=== PATIENT | male | born 1975 | race Caucasian/White ===

== ENCOUNTER 2024-08-24 11:02 | Outpatient (CLI) | payer MEDICARE, SELFPAY ==
--- NOTE | 2024-08-24 11:04 | US_ITS ---
FINAL REPORT CLINICAL HISTORY: umbilical hernia COMPARISON: None FINDINGS: A limited ultrasound of the upper abdomen was performed to evaluate for an umbilical hernia. An umbilical hernia is seen, however there does not appear to be any bowel contained within the hernia. The overall appearance is most consistent with a fat-containing hernia. However, CT evaluation would be more accurate for evaluation of this area. IMPRESSION: There appears to be an umbilical hernia containing fat present. No bowel is seen within the hernia. CT evaluation is more accurate for evaluation of this area. Reviewed, Interpreted and Dictated by Zay Heredia III, MD Transcribed by Minoo Wade Authenticated and [facility]
== END 2024-08-24 23:59 | disposition home or self-care (01) ==
PROVIDERS: Visit Provider Nurse Practitioner Family
DX: K42.9 Umbilical hernia without obstruction or gangrene (principal)
CPT/HCPCS: 76705

== ENCOUNTER 2025-01-14 10:26 | Emergency (ER) | payer MEDICARE, SELFPAY ==
[2025-01-14 10:34] VITALS: PULSE 80; O2SAT 92
[2025-01-14 10:35] VITALS: BP 151/94; PULSE 68; O2SAT 95
[2025-01-14 10:39] LABS: Microscopic, Urine URINE MICROSCOPIC (MICROSCOPIC)
[2025-01-14 10:42] VITALS: BP 151/94; PULSE 73; RESP 16; TEMP 36.6; O2SAT 96; BMI 33.3
[2025-01-14 10:42] LABS: Appearance,Urine CLEAR (Clear); Bilirubin,Urine Negative (Negative); Blood, Urine TRACE-I (Negative); Color,Urine YELLOW (Yellow); Glucose,Urine (UA) Negative (Negative); Ketones,Urine Negative (Negative); Leukocyte Esterase,Urine Negative (Negative); Nitrate,Urine Negative (Negative); Protein,Urine Negative (Negative); Specific Gravity, Urine 1.025 (1.005-1.030); Urobilinogen,Urine 0.2 EU/dl (0.2)
--- NOTE | 2025-01-14 10:53 | CT_ITS ---
FINAL REPORT TECHNIQUE: Axial images through the abdomen and pelvis were performed without contrast. This study was performed with techniques to keep radiation doses as low as reasonably achievable, (ALARA). Individualized dose reduction techniques using automated exposure control or adjustment of mA and/or kV according to the patient's size were employed. CLINICAL HISTORY: R flank pain. hx kidney stones COMPARISON: None FINDINGS: Abdomen: The lung bases are clear. Moderate fatty infiltration of the liver is present. The gallbladder is absent. Splenomegaly is present, the spleen measuring 14 cm in the craniocaudal dimension. The pancreas and adrenals are unremarkable. There is marked right hydronephrosis and hydroureter, with a 7 mm stone present in the distal right ureter. The left kidney is unremarkable in appearance. Pelvis: The urinary bladder is decompressed. The appendix is normal in appearance. There is no pelvic mass or inflammation. Note is made of a fat-containing umbilical hernia. IMPRESSION: Marked right hydronephrosis and hydroureter, with a 7 mm calcified stone present in the distal right ureter. Moderate fatty filtration of the liver, and mild splenomegaly. Reviewed, Interpreted and Dictated by Rudy Beck MD Transcribed by Minoo Wade Authenticated and [facility]
[2025-01-14 10:56] LABS: Basophils % 0.2 % (0.1-2.0); Eosinophils # 0.1 Kmm3 (0.0-0.4); Eosinophils % 0.6 % (0.1-12.0); Hematocrit 43.7 % (42.0-52.0); Hemoglobin 14.4 g/dL (14.1-18.0); Lymphocytes # 1.6 K/mm3 (0.7-4.5); Lymphocytes % 11.8 % (10-50); Mean Corpuscular Hemoglobin 27.7 pg (27.0-31.2); Mean Corpuscular Volume 84.2 fl (80-94); Mean Platelet Volume 9.5 fl (7.4-10.4); Monocytes # 0.8 K/mm3 (0.1-1.0); Neutrophils # 10.7 K/mm3 (1.8-7.8); Neutrophils % 80.9 % (37.0-80.0); Nucleated Red Blood Cells # 0 10^3/uL; Nucleated Red Blood Cells % 0 %; Platelet Count 188 K/mm3 (142-424); Red Blood Count 5.19 M/mm3 (4.60-6.20); Red Cell Distribution Width 13.4 % (11.5-17.5); Red Cell Distribution Width-SD 41.5 fL; White Blood Count 13.2 K/mm3 (4.8-10.8)
--- NOTE | 2025-01-14 11:00 | PC.NURSE ---
pt is going to CT at this time
[2025-01-14 11:03] LABS: Alanine Aminotransferase 23 U/L (12-78); Albumin Level 4.2 g/dl (3.5-5.0); Albumin/Globulin Ratio 1.4 (1.1-1.8); Alkaline Phosphatase 61 U/L (38-126); Anion Gap 9.9 mEq/L (5-15); Aspartate Amino Transferase 30 U/L (17-59); Bilirubin,Total 0.5 mg/dl (0.2-1.3); Blood Urea Nitrogen 14 mg/dl (9-20); Calcium 9.1 mg/dl (8.4-10.2); Carbon Dioxide 27 mmol/L (22.0-30.0); Chloride 105 mmol/L (98-107); Creatinine Clearance Estimated 127 mL/min (50-200); Estimated Glomerular Filt Rate 65 ml/min (>60); GFR (African American) 79 ML/MIN (>60); Globulin 2.9 g/dL (1.3-3.2); Glucose 116 mg/dl (74-100); Lipase 50 U/L (23-300); Potassium 3.9 mmoL/L (3.5-5.1); Sodium 138 mmol/L (136-145); Total Protein,Serum 7.1 g/dl (6.3-8.2)
[2025-01-14 11:09] LABS: Lactic Acid 1.4 mmol/L (0.7-2.1)
[2025-01-14 11:13] LABS: Bacteria,Urine Trace /lpf; Squamous Epithelial Cell,Urine Occasional #/hpf (0-5); WBC,Urine Occasional #/hpf (0-3)
[2025-01-14 11:30] VITALS: BP 130/89; PULSE 69; O2SAT 94
--- NOTE | 2025-01-14 11:38 | PC.NURSE ---
Dr Clay at bedside
[2025-01-14] MEDS: ONDANSETRON 4MG/2ML VIAL 4 MG IV (11:49)
[2025-01-14] MEDS: KETOROLAC 30MG/ML VIAL 15 MG IV (11:49)
--- NOTE | 2025-01-14 12:17 | ED_ITS ---
Discharge Plan Disposition Patient Disposition: Home, Self-Care Prescriptions Prescriptions: New ketorolac 10 mg tablet 10 mg PO Q8H PRN (Reason: pain) 5 Days Qty: 15 0RF ondansetron 4 mg tablet,disintegrating 4 mg PO Q6H PRN (Reason: nausea and vomiting) Qty: 10 0RF No Action tamsulosin 0.4 mg capsule 0.8 mg PO DAILY atenolol 25 mg tablet 50 mg PO DAILY omeprazole 40 mg capsule,delayed release(DR/EC) 40 mg PO DAILY zolpidem 10 mg tablet 10 mg PO DAILY gabapentin 800 mg tablet 800 mg PO TID celecoxib 200 mg capsule 200 mg PO BID tizanidine 4 mg tablet 4 mg PO TID duloxetine 60 mg capsule,delayed release(DR/EC) 60 mg PO DAILY sertraline 100 mg tablet 200 mg PO DAILY fentanyl 50 mcg/hr patch 72 hour 1 patch transdermal Q72H rosuvastatin 10 mg tablet 10 mg PO DAILY tadalafil 10 mg tablet 10 mg PO DAILY Referrals Follow up/Referrals: Provider,Referral, MD [Primary Care Provider] - See instructions Activity Restrictions/Add. Instructions Additional Instructions/Restrictions: Call your family doctor to establish care for this visit to the emergency department and schedule follow-up within 48 hours to ensure improvement. If you have any worsening of your condition or any other concerning signs or symptoms, return to the emergency department or your primary care doctor for further evaluation. Clinical Impressions Clinical Impression: Right nephrolithiasis, Hydronephrosis Instructions Patient Instructions: DI for Acute Abdominal Pain Print Language Print Language: [place] Discharge ED Provider: Armani Clay General Adult HPI General Chief complaint: Abdominal Pain Stated complaint: Poss. kidney stones Time Seen by Provider: 01/14/25 11:04 Mode of Arrival: Ambulatory Source of Information: Patient Description of Symptoms (Recalled from ER Triage Doc. by RN): pt c/o R flank pain that is a 10/10 and dull in nature ongoing since yesterday. pt also reports severe nausea and minimal urination. pt states he has a long hx of kidney stones and this feels the same. History of Present Illness HPI narrative: Please note that above description of symptoms, in this electronic medical record under categorization of recalled from ER triage doctor by RN are reflective of an initial nursing assessment, however, is not reflective of my full history and physical exam that was personally taken and clarified. Consequentially, this preceding description of symptoms, which may include the patient's categorized chief complaint in the EMR, do not reflect my personal clinical impression, and the ultimate description of history of present illness and patient stated complaints should be deferred to this section of the note. Unless stated otherwise or congruent with this section of the note, additional signs, symptoms, or incongruence should be interpreted as inaccurate with my clinical impression. Related Data Home Medications ?Medication ?Instructions ?Recorded ?Confirmed atenolol 25 mg tablet 50 mg PO DAILY 08/17/24 01/14/25 celecoxib 200 mg capsule 200 mg PO BID 08/17/24 01/14/25 duloxetine 60 mg capsule,delayed 60 mg PO DAILY 08/17/24 01/14/25 release fentanyl 50 mcg/hr transdermal 1 patch transdermal Q72H 08/17/24 01/14/25 patch gabapentin 800 mg tablet 800 mg PO TID 08/17/24 01/14/25 omeprazole 40 mg capsule,delayed 40 mg PO DAILY 08/17/24 01/14/25 release sertraline 100 mg tablet 200 mg PO DAILY 08/17/24 01/14/25 tamsulosin 0.4 mg capsule 0.8 mg PO DAILY 08/17/24 01/14/25 tizanidine 4 mg tablet 4 mg PO TID 08/17/24 01/14/25 zolpidem 10 mg tablet 10 mg PO DAILY 08/17/24 01/14/25 rosuvastatin 10 mg tablet 10 mg PO DAILY 01/14/25 01/14/25 tadalafil 10 mg tablet 10 mg PO DAILY 01/14/25 01/14/25 Previous Rx's ?Medication ?Instructions ?Recorded ketorolac 10 mg tablet 10 mg PO Q8H PRN pain 5 days #15 01/14/25 tabs ondansetron 4 mg disintegrating 4 mg PO Q6H PRN nausea and 01/14/25 tablet vomiting #10 tabs Allergies Allergy/AdvReac Type Severity Reaction Status Date / Time shellfish derived Allergy Mild Rash Verified 01/14/25 10:53 iodine AdvReac Mild Rash Verified 01/14/25 10:53 PFS PFS Disclaimer: The information contained in this section may have been updated after the patient was seen, as this information can be updated by other users. Medical History (Updated 01/14/25 @ 12:20 by Armani Clay MD) Multiple kidney stones Hypertension Surgical History (Updated 08/17/24 @ 10:29 by Anca Correia MA) History of cholecystectomy Social History (Updated 08/17/24 @ 10:26 by Anca Correia MA) Smoking Status: Never smoker alcohol intake: never substance use type: denies use current occupational status: disabled Travel in the last 8 weeks?: None household members: none housing: house marital status: education level: vocational Have you lived/traveled outside [place] in past 30 days?: No Contact w/someone who lives/traveled outside US past 30 days?: No Exposure to someone with infectious disease in past 14 days?: No Do you have a fever (greater than 100.4 F or 38 C)?: No Have you tested positive for COVID-19?: No Exposed to someone with COVID-19 in past 14 days?: No Do you have a sore throat?: No Do you have a cough?: No Do you have any weakness?: No Do you have any diarrhea?: No Are you experiencing any unusual bleeding?: No Do you have any muscle aches/pain?: No Do you have any abdominal pain?: No Are you experiencing loss of taste or smell?: No ROS Obtained: Yes All systems reviewed & no additional complaints except as documented Physical Exam General General appearance: alert Head Head exam: atraumatic and normocephalic Eye Eye exam: Present normal appearance, PERRL and EOMI Neck Neck exam: Present normal inspection, full ROM and trachea midline Respiratory Respiratory exam: Absent respiratory distress, wheezes, stridor, accessory muscle use or prolonged expiratory phase Cardiovascular Cardiovascular exam: Present other (Pulses equal symmetric in upper and lower extremities) Abdominal Exam Abdominal exam: Present soft; Absent distention, tenderness or pulsatile mass Extremities Exam Extremities exam: Absent edema Neurological Exam Neurological exam: Present alert, oriented X3 and CN II-XII intact; Absent motor sensory deficit Skin Skin exam: Present warm and dry; Absent diaphoresis or erythema Medical Decision Making Medical Records Medical records reviewed: Yes I reviewed the patient's medical records. Screening: Per USPSTF and CDC recommendations, given the prevalence of disease in our region, it is our hospital?s policy to screen for HIV and viral Hepatitis for all patients aged 18 and over and those with ongoing risk factors. Daniel Inquiry Pt receiving controlled substance: No Daniel was queried for this patient: No Vital Signs: 01/14/25 10:34 01/14/25 10:35 01/14/25 10:42 Temperature 97.8 F Temperature Source Oral Pulse Rate 80 68 Pulse Rate [Left] 73 Respiratory Rate 16 Blood Pressure 151/94 H Blood Pressure [Right Arm] 151/94 H Blood Pressure Mean 111 Blood Pressure Mean [Right Arm] 113 Blood Pressure Source [Right Arm] Automatic Cuff Blood Pressure Position [Right Arm] Sitting 02 Sat by Pulse Oximetry 92 L 95 96 Oxygen Delivery Method Room Air 01/14/25 11:30 Temperature Temperature Source Pulse Rate 69 Pulse Rate [Left] Respiratory Rate Blood Pressure 130/89 Blood Pressure [Right Arm] Blood Pressure Mean Blood Pressure Mean [Right Arm] Blood Pressure Source [Right Arm] Blood Pressure Position [Right Arm] 02 Sat by Pulse Oximetry 94 L Oxygen Delivery Method Lab Data Lab Results 01/14/25 10:34: Urine Color Yellow, Urine Appearance Clear, Urine pH 6.0, Ur Specific [place] 1.025, Urine Protein Negative, Urine Glucose (UA) Negative, Urine Ketones Negative, Urine Blood Trace-i, Urine Nitrate Negative, Urine Bilirubin Negative, Urine Urobilinogen 0.2, Ur Leukocyte Esterase Negative, Urine RBC 3-5, Urine WBC Occasional, Ur Squamous Epith Cells Occasional, Urine Bacteria Trace 01/14/25 10:40: WBC 13.2 H, RBC 5.19, Hgb 14.4, Hct 43.7, MCV 84.2, MCH 27.7, MCHC 33.0, RDW 13.4, Plt Count 188, MPV 9.5, Neut % (Auto) 80.9 H, Lymph % (Auto) 11.8, Mora % (Auto) 6.0, Eos % (Auto) 0.6, Baso % (Auto) 0.2, Neut # (Auto) 10.7 H, Lymph # (Auto) 1.6, Mora # (Auto) 0.8, Eos # (Auto) 0.1, Baso # (Auto) 0.0, Sodium 138, Potassium 3.9, Chloride 105, Carbon Dioxide 27, Anion Gap 9.9, BUN 14, Creatinine 1.20, Estimated Creat Clear 127, Estimated GFR 65, Est GFR ( Amer) 79, Glucose 116 H, Lactate 1.4, Calcium 9.1, Total Bilirubin 0.5, AST 30, ALT 23, Alkaline Phosphatase 61, Total Protein 7.1, Albumin 4.2, Globulin 2.9, Albumin/Globulin Ratio 1.4, Lipase 50 01/14/25 10:40 01/14/25 10:40 Orders (Tests/Meds): ED MEDICATIONS Discontinued Medications Generic Name Dose Route Start Last Admin Trade Name Freq PRN Reason Stop Dose Admin Ketorolac Tromethamine 15 mg 01/14/25 11:37 01/14/25 11:49 Ketorolac 30mg/Ml Vial IV 01/14/25 11:38 15 mg ONCE ONE Administration Ondansetron HCl 4 mg 01/14/25 11:37 01/14/25 11:49 Ondansetron 4mg/2ml Vial IV 01/14/25 11:38 4 mg ONCE ONE Administration ORDERS Category Date Time Status CT abdomen pelvis wo con Stat Cat Scan 01/14/25 10:53 Taken Complete Blood Count Auto Diff Stat Lab 01/14/25 10:40 Completed Comprehensive Metabolic Panel Stat Lab 01/14/25 10:40 Completed HIV Combo Stat Lab 01/14/25 10:40 Received Hepatitis C Ab Qual. W/ RFX Stat Lab 01/14/25 10:40 Received Lactic Acid Stat Lab 01/14/25 10:40 Completed Lipase Stat Lab 01/14/25 10:40 Completed UA [Urinalysis and Microscopic] Stat Lab 01/14/25 10:34 Completed Medical Decision Narrative: Is a 49-year-old male history of kidney stones presenting with right flank pain. He also has a history of back pain, unsure if this is related. States that he has not done anything exertional, heavy lifting, etc. Pain has been going on for couple days, intermittent, severe in intensity at times. Has needed stones instrumentation in the past. States that no fevers, chills, dysuria, hematuria, etc. Came in for further evaluation. History obtained with patient. On arrival, patient very clinically well, in no obvious acute distress. Minimal abdominal or flank tenderness. Differential includes stone, fracture, dislocation, radiculopathy, radiculitis, less likely be aortic pathology, among others. Basic labs to be obtained, on independent interpretation, mild leukocytosis 13.2 likely from stress degranulation. His kidney function is normal and his urinalysis has intermittent blood without signs of infection. CT scan of the abdomen and pelvis was independently interpreted. He does have right-sided 4 mm stone with severe upstream hydronephrosis in the mid to distal ureter. Because patient has normal kidney function, no systemic signs or symptoms, noninfected urine, pain is controlled, deemed appropriate for outpatient management. He does have follow-up with [facility], able to schedule an appointment. Because patient at baseline without signs or symptoms of clinical decompensation, deemed appropriate for discharge. Results were relayed to patient who voiced understanding and were agreeable to outpatient management and follow up. I discussed my clinical impression with patient and answered all questions. At this time, the evidence for any other entities in the differential is insufficient to warrant any further testing or ED observation. This was explained as well. Advisory was given that persistent or worsening symptoms require further evaluation. I confirmed the understanding of this discussion. Mechanical Repair Worker disclaimer Much of this encounter note is an electronic aerospace quality engineer spoken language to printed text. Electronic aerospace quality engineer of the spoken language may permit errors. Although I have reviewed the note, some errors may still exist. Critical Care Critical Care Time Critical Care Time: No
[2025-01-14 12:26] VITALS: BP 130/89; PULSE 69; RESP 16; TEMP 36.9
[2025-01-14 12:58] LABS: HIV Combo NEGATIVE (Negative)
[2025-01-14 13:06] LABS: Hepatitis C Ab Qual. W/ RFX NEGATIVE (Negative)
== END 2025-01-14 12:28 | disposition home or self-care (01) ==
PROVIDERS: Emergency Provider Emergency Medicine
DX: R10.31 Right lower quadrant pain (principal); N13.0 Hydronephrosis with ureteropelvic junction obstruction; N13.4 Hydroureter; R11.0 Nausea; Z11.59 Encounter for screening for other viral diseases; Z11.4 Encounter for screening for human immunodeficiency virus [HIV]
CPT/HCPCS: 74176; 80053; 81001; 83605; 83690; 85025; 86803; 87389; 96374; 96375; 99285; J1885; J2405